=== PATIENT | female | born 1985 | race Caucasian/White ===

== ENCOUNTER 2018-10-27 08:52 | Emergency (ER) | payer MEDICAID, OTHER ==
[~2018-10-27] VITALS: Wt 78.0 kg
[2018-10-27 08:54] VITALS: BP 127/67; PULSE 67; RESP 18
--- NOTE | 2018-10-27 10:00 | ERD ---
ER Documentation Chief Complaint Chief Complaint TEARFUL,HEAD PRESSURE,DIZZINESS, ANXIOUS HPI 33-year-old healthy female with no reported past medical surgical history presents with complaint of anxiety. States feeling anxious as she feels she may have contracted an STD. States [facility] and had all appropriate tests including gonorrhea, chlamydia, HIV testing which all reported negative per patient. With candidiasis and has completed treatment with oral antifungals. She denies any continuing symptoms such as urinary itching or burning, urinary frequency, vaginal bleeding or discharge, fevers, chills, new rash or concerning lesion. At time of examination patient is quite anxious about possibly still having STD. All patient questions answered and reassurance given. ROS All systems reviewed and are negative except as per history of present illness. Allergies Allergies: Coded Allergies: No Known Allergy (Verified Allergy, Unknown, NONE, 08/11/06) FmHx Family History: No diabetes, No coronary disease, No other Physical Exam Vitals Vital Signs Date Temp Pulse Resp B/P (MAP) Pulse Ox O2 O2 Flow FiO2 Time Delivery Rate 10/27/18 98.1 67 18 127/67 99 08:54 (87) Physical Exam Const: No acute distress Head: Atraumatic Eyes: Normal Conjunctiva ENT: Normal External Ears, Nose and Mouth. Neck: Full range of motion. No meningismus. Resp: Clear to auscultation bilaterally Cardio: Regular rate and rhythm, no murmurs Abd: Soft, non tender, non distended. Normal bowel sounds Skin: No petechiae or rashes Back: No midline or flank tenderness Ext: No cyanosis, or edema Neur: Awake and alert Psych: Normal Mood and Affect Procedures/MDM 33-year-old female presents with concern of STDs and associated anxiety. She has [facility] appropriate [facility] and all test reported as negative. She does not have any current signs or symptoms of ongoing infection. Patient reassured and educated. Patient instructed to follow-up with PMD or return to ED if she has any concerning symptoms warranting further care. DISPOSITION PLAN: We discussed follow up with the patient's primary care doctor within 24 to 48 hours. Patient counseled regarding my diagnostic impression and care plan. Prior to discharge all questions answered. Pt agrees with treatment plan and understands strict return precautions. Precautionary instructions provided including instructions to return to the ER if not improving or for any worsening or changing symptoms or concerns. Disclaimer: Inadvertent spelling and grammatical errors are likely due to EHR/dictation software use and do not reflect on the overall quality of patient care. Also, please note that the electronic time recorded on this note does not necessarily reflect the actual time of the patient encounter. Departure Diagnosis: Primary Impression: Anxiety Condition: Stable Patient Instructions: Your Body's Response to Anxiety, Understanding STDs Referrals: [facility] YOU HAVE RECEIVED A MEDICAL SCREENING EXAM AND THE RESULTS INDICATE THAT YOU DO NOT HAVE A CONDITION THAT REQUIRES URGENT TREATMENT IN THE EMERGENCY DEPARTMENT. FURTHER EVALUATION AND TREATMENT OF YOUR CONDITION CAN WAIT UNTIL YOU ARE SEEN IN YOUR DOCTORS OFFICE WITHIN THE NEXT 1-2 DAYS. IT IS YOUR RESPONSIBILITY TO MAKE AN APPOINTMENT FOR FOLOW-UP CARE. IF YOU HAVE A PRIMARY DOCTOR --you should call your primary doctor and schedule an appointment IF YOU DO NOT HAVE A PRIMARY DOCTOR YOU CAN CALL OUR PHYSICIAN REFERRAL HOTLINE AT IF YOU CAN NOT AFFORD TO SEE A PHYSICIAN YOU CAN CHOSE FROM THE FOLLOWING [facility] [address] [facility]. [facility] [address] [facility] [facility] [address] [facility] [address] [facility]. [facility] [address] [facility] [facility]. [address] Additional Instructions: Call your primary care doctor TOMORROW for an appointment during the next 2-3 days.See the doctor sooner or return here if your condition worsens before your appointment time. JADYN BILLINGS PA-C October 27, 2018 10:00
== END 2018-10-27 10:33 | disposition home or self-care (01) ==
LOC: FTE 08:52
DX: F41.9 Anxiety disorder, unspecified (principal)
CPT/HCPCS: 99282

== ENCOUNTER → 2019-01-30 | Outpatient (CLI) | payer MEDICAID | END | disposition home or self-care (01) | LOC: U/S 11:02 | PROVIDERS: ATTEND Advanced Practice Midwife | DX: O20.0 Threatened abortion (principal); Z3A.11 11 weeks gestation of pregnancy | CPT/HCPCS: 76801 ==